=== PATIENT | female | born 1970 | race Caucasian/White ===

== ENCOUNTER 2025-01-14 08:54 | Day surgery (SDC) | payer SELFPAY ==
--- NOTE | 2025-01-14 09:09 | PCM.HP.STD ---
[facility] - General General Date of Admission: 01/14/25 Date of Service: 01/14/25 Chief Complaint: Personal history of polyps [facility] Narrative KAMLA MORENO, is a 54 F who presents today for surveillance colonoscopy. She had a colonoscopy back in 2019 when she had 2 small 0.3 and 0.4 mm sessile polyps removed. She is not having any abdominal pain, cramping, chest pain or shortness of breath at this time. [facility] Medical History Wears glasses Wears dentures Post-menopausal Thyroid disease Shortness of breath on exertion Non-smoker PONV (postoperative nausea and vomiting) Personal history of colonic polyps section wound complication Polycystic ovaries IBS (irritable bowel syndrome) Hearing problem Chronic headaches Cataracts, bilateral Seasonal allergies Anemia Home Medications ?Medication ?Instructions ?Recorded ?Last Taken ?Type aspirin 81 mg capsule 81 mg PO DAILY 01/09/25 01/08/25 History calcium-magnesium 300 mg-300 mg 1 tab PO DAILY 01/09/25 Unknown History tablet levothyroxine 50 mcg tablet 50 mcg PO DAILY disorder of 01/09/25 Unknown History thyroid gland loratadine 10 mg capsule (Allergy 10 mg PO DAILY 01/09/25 Unknown History Relief (loratadine)) Allergy/AdvReac Type Severity Reaction Status Date / Time No Known Allergies Allergy Verified 01/09/25 11:54 Family History Father Myocardial infarction CVA (cerebral vascular accident) Mother Diabetes Grandmother Cancer Aunt Cancer Other Family history of transfusion of whole blood Surgical History History of colonoscopy History of Hx of tonsillectomy Social History Smoking Status: Never smoker alcohol intake: never substance use type: does not use ROS Constitutional Constitutional: Denies fatigue, fever(s), poor appetite, weight gain or weight loss Gastrointestinal Gastrointestinal: Denies belching, bloating, change in bowel habits, change in stool character, chewing difficulty, coffee ground emesis, constipation, cramping, diarrhea, dyspepsia, dysphagia, early satiety, excessive flatus, fecal incontinence, heartburn, hematemesis, hematochezia, hemorrhoids, loose stools, melena, nausea, odynophagia, rectal bleeding, tenesmus, vomiting or weight changes Physical Exam Const alert, oriented x3, no apparent distress and healthy appearing General Appearance: cooperative GI normal to inspection, nondistended, normoactive bowel sounds, soft to palpation, non-tender and non-distended Percussion: normal to percussion Rectal Exam: deferred Assessment & Plan Assessment/Plan (1) Personal history of colonic polyps: PLAN: She will undergo surveillance colonoscopy. She was explained alternatives, risk and benefits include not withstanding bleeding, infection, sepsis, perforation, need for surgery . She will have an ASA of 3.
[2025-01-14 09:32] VITALS: BP 130/92; PULSE 58; RESP 18; TEMP 36.4; O2SAT 99; BMI 27.2
[2025-01-14] MEDS: Lactated Ringers 1,000 ML 15 ML IV (09:41)
--- NOTE | 2025-01-14 09:45 | PCM.PRE.AN2 ---
ASA Classification* ASA Classification ASA Classification: 2 (Hx PONV, IBS, hypothyroid) Assessment & Plan Anesthesia* Anesthesia Assessment Anesthesia Assessment: Discussed sedation and/or anesthesia options, risks, benefits, and alternatives with patient/parents/legal guardian/POA. Questions invited. The patient/parents/legal guardian/POA seems to understand and agrees to proceed with anesthesia plan. Reviewed the physical assessment, medical history, allergy history and patient home medications list prior to surgery/procedure/anesthetic and documented any changes. Performed airway and anesthesia risk assessments. 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 When Was Last Pacemaker Check QUESTION #4 FULL TEXT: You/Your Family Experience fever (hyperthermia) with Anesthesia Last Oral Intake Last Oral intake: Last Oral Intake NPO since 05:30 01/14/25 09:32 Meds taken in AM with sips of water? 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 Female Yes 01/09/25 11:57 HX of Motion Sickness No 01/09/25 11:57 HX of N/V After Surgery Yes 01/09/25 11:57 Non-Smoker Yes 01/09/25 11:57 Duration of Surgery greater No 01/09/25 11:57 than 60 minutes Number of Risk Factors 3 01/09/25 11:57 PONV Score Moderate Risk 01/09/25 11:57 Height & Weight Height & Weight: Anesthesia: Height & Weight Height 5 ft 4 in 01/14/25 09:32 Weight: 72 kg 01/14/25 09:32 Body Mass Index (BMI) 27.2 01/14/25 09:32 Respiratory Assessment Respiratory Assessment - sales representative livestock: Respiratory Tract Infection Hx - sales representative livestock Hx Respiratory Tract Infection No 01/09/25 11:57 STOP Sleep Apnea STOP Sleep Apnea - sales representative livestock: STOP Sleep Apnea - sales representative livestock Hx Hypertension No 01/09/25 11:57 Hx Sleep Apnea No 01/09/25 11:57 CPAP BIPAP Do you snore loudly (louder No 01/09/25 11:57 than talking or can be heard Do you often feel tired/ No 01/09/25 11:57 fatigued/ sleepy during daytime? Has anyone observed you stop No 01/09/25 11:57 breathing during sleep? STOP Results Negative 01/09/25 11:57 QUESTION #5 FULL TEXT : Do you snore loudly (louder than talking or can be heard through closed doors)? 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 Specify any problems Hx of Preganancy in last 3 No 01/09/25 11:57 Months Nurse Filling Out Transfusion MGRIFFITH 01/09/25 11:57 & Questions: Date: 01/09/25 01/09/25 11:57 Time: 11:59 01/09/25 11:57 Patient unable to answer at this time (ie. confused, unrespo /Reproduction History /Reproductive History - sales representative livestock: /Reproductive Hx- sales representative livestock Hx Now No 01/09/25 11:57 Gestational Age (in weeks): EDC: Hx Hx Para Hx Section SAB No 01/09/25 11:57 Active Medications Active Medications: Current Medications Generic Name Dose Route Start Last Admin Trade Name Freq PRN Reason Stop Dose Admin Lactated Ringer's 1,000 mls @ 15 mls/hr 01/14/25 09:15 01/14/25 09:41 IV 15 mls/hr .Q48H RAS Administration PFSH Medical History Wears glasses Wears dentures Post-menopausal Thyroid disease Shortness of breath on exertion Non-smoker PONV (postoperative nausea and vomiting) Personal history of colonic polyps section wound complication Polycystic ovaries IBS (irritable bowel syndrome) Hearing problem Chronic headaches Cataracts, bilateral Seasonal allergies Anemia Home Medications ?Medication ?Instructions ?Recorded ?Last Taken ?Type aspirin 81 mg capsule 81 mg PO DAILY 01/09/25 01/08/25 History calcium-magnesium 300 mg-300 mg 1 tab PO DAILY 01/09/25 01/12/25 History tablet levothyroxine 50 mcg tablet 50 mcg PO DAILY disorder of 01/09/25 01/14/25 History thyroid gland loratadine 10 mg capsule (Allergy 10 mg PO DAILY 01/09/25 01/13/25 History Relief (loratadine)) Allergy/AdvReac Type Severity Reaction Status Date / Time No Known Allergies Allergy Verified 01/14/25 09:31 Family History Father Myocardial infarction CVA (cerebral vascular accident) Mother Diabetes Grandmother Cancer Aunt Cancer Other Family history of transfusion of whole blood Surgical History History of colonoscopy History of Hx of tonsillectomy Social History Smoking Status: Never smoker alcohol intake: never substance use type: does not use Review of Systems (Anesthesia) ROS Narrative System reviewed and no additional complaints, except as documented. Physical Exam Const alert, oriented x3 and average body habitus Resp normal respiratory effort, normal air movement and clear to auscultation bilaterally Cardio regular rate, regular rhythm, no murmurs and diaphoretic
[2025-01-14 09:47] VITALS: BP 130/92; PULSE 58; RESP 18; TEMP 36.4; O2SAT 99
--- NOTE | 2025-01-14 10:48 | OP.COLON_ITS ---
Patient Name: Juana Salmeron Procedure Date: 01/14/2025 10:22 AM Date of : 1970 Age: 54 Procedure: Colonoscopy Indications: High risk colon cancer surveillance: Personal history of colonic polyps Providers: Jude Robledo DO Referring MD: Sujit Villegas Do Medicines: Monitored Anesthesia Care Patient Profile: This is a 54 year old female. Refer to note in patient chart for documentation of history and physical. Last Colonoscopy: 5 years ago. Complications: No immediate complications. Procedure: Pre-Anesthesia Assessment: - Prior to the procedure, a History and Physical was performed, and patient medications and allergies were reviewed. The patient is competent. The risks and benefits of the procedure and the sedation options and risks were discussed with the patient. All questions were answered and informed consent was obtained. Patient identification and proposed procedure were verified by the physician in the pre-procedure area. Mental Status Examination: alert and oriented. Airway Examination: normal oropharyngeal airway and neck mobility. Respiratory Examination: clear to auscultation. CV Examination: normal. Prophylactic Antibiotics: The patient does not require prophylactic antibiotics. Prior Anticoagulants: The patient has taken no anticoagulant or antiplatelet agents except for NSAID medication. ASA Grade Assessment: II - A patient with mild systemic disease. After reviewing the risks and benefits, the patient was deemed in satisfactory condition to undergo the procedure. The anesthesia plan was to use monitored anesthesia care (MAC). Immediately prior to administration of medications, the patient was re-assessed for adequacy to receive sedatives. The heart rate, respiratory rate, oxygen saturations, blood pressure, adequacy of pulmonary ventilation, and response to care were monitored throughout the procedure. The physical status of the patient was re-assessed after the procedure. After I obtained informed consent, the scope was passed under direct vision. Throughout the procedure, the patient's blood pressure, pulse, and oxygen saturations were monitored continuously. The colonoscope was introduced through the anus and advanced to the cecum, identified by appendiceal orifice and ileocecal valve. The colonoscopy was performed without difficulty. The patient tolerated the procedure well. The quality of the bowel preparation was adequate. The ileocecal valve, appendiceal orifice, and rectum were photographed. Scope In: 10:30:12 AM Scope Withdrawal Time 0 hours 6 minutes 6 seconds Scope Out: 10:42:44 AM Total Procedure Duration Time 0 hours 12 minutes 32 seconds Findings: The perianal and digital rectal examinations were normal. A few small-mouthed diverticula were found in the recto-sigmoid colon, sigmoid colon and descending colon. The exam was otherwise without abnormality on direct and retroflexion views. Impression: - Diverticulosis in the recto-sigmoid colon, in the sigmoid colon and in the descending colon. - The examination was otherwise normal on direct and retroflexion views. - No specimens collected. Recommendation: - Discharge patient to home. - Resume previous diet. - Continue present medications. - Repeat colonoscopy in 5 years for surveillance. Procedure Code(s): --- Professional --- 25916, Colonoscopy, flexible; diagnostic, including collection of specimen(s) by brushing or washing, when performed (separate procedure) CPT copyright 2021 [employer]. All rights reserved. The codes documented in this report are preliminary and upon cook restaurant review may be revised to meet current compliance requirements. Jude Robledo DO 01/14/2025 10:48:12 AM This report has been signed electronically. Number of Addenda: 0 Note Initiated On: 01/14/2025 10:22 AM
--- NOTE | 2025-01-14 10:48 | OP.PROVAT_ITS ---
01/14/2025 Sujit Villegas Do Re : Colonoscopy procedure for Juana Salmeron Dear Nelly This procedure was performed on Tuesday, January 14, 2025. My impressions and recommendations are as follows: Impressions : - Diverticulosis in the recto-sigmoid colon, in the sigmoid colon and in the descending colon. - The examination was otherwise normal on direct and retroflexion views. - No specimens collected. Recommendations : - Discharge patient to home. - Resume previous diet. - Continue present medications. - Repeat colonoscopy in 5 years for surveillance. My findings are described in the full procedure note, which is enclosed. If I can be of further assistance, please feel free to contact me at . Sincerely, Jude Robledo, 01/14/2025 10:48:12 AM This report has been signed electronically.
[2025-01-14 10:51] VITALS: BP 130/92; BP 98/64; PULSE 55; RESP 16; TEMP 36.3; O2SAT 98
--- NOTE | 2025-01-14 10:54 | PCM.POST.ANE ---
Anesthesia: Postop Eval I Current Vital Signs Temperature: 97.4 F Pulse Rate: 61 Blood Pressure: 98/64 Respiratory Rate: 16 Pulse Ox: 99 Oxygen Delivery Method: Room Air Assessment Airway patent: Yes Spontaneous unlabored respirations: Yes Mental status: Awake and Calm nausea: No Vomiting: No Anesthesia Complication: No Fluid Hydration Crystalloid volume administer (ml): 500 Total IV fluid infused: 500 Progress Note Anesthesia document: Postop Eval 1 completed: Yes
[2025-01-14 10:55] VITALS: BP 100/64; BP 130/92; BP 98/64; PULSE 56; PULSE 61; RESP 16; TEMP 36.3; O2SAT 97; O2SAT 99
[2025-01-14 11:00] VITALS: BP 106/60; BP 130/92; PULSE 52; RESP 18; TEMP 36.5; O2SAT 98
[2025-01-14 11:16] VITALS: BP 130/92
--- NOTE | 2025-01-14 12:46 | PCM.POSTANE2 ---
Anesthesia Postop Eval I Sum Postop Eval Completion status Anesthesia document: Postop Eval 1 completed: Yes Anesthesia Postop Eval I Summary Anesthesia Postop Eval I Summary: Anesthesia Postop Eval I: Assessment Summary Airway patent Yes 01/14/25 10:55 [email or web address] Spontaneous unlabored Yes 01/14/25 10:55 [email or web address] respirations Mental status Awake,Calm 01/14/25 10:55 [email or web address] nausea No 01/14/25 10:55 [email or web address] Vomiting No 01/14/25 10:55 [email or web address] Anesthesia Postop Eval I: Fluid Summary Crystalloid volume administer 500 01/14/25 10:55 [email or web address] (ml) Colloids volume administered ( ml) Blood Product volume administered (ml) Total IV fluid infused 500 01/14/25 10:55 [email or web address] Anesthesia Postop Eval I: Summary Notes Anesthesia Complication No 01/14/25 10:55 [email or web address] Anesthesia Complication Comment: Post-operative progress note Anesthesia: Postop Eval II Evaluation Mental status: Awake Pain Level: 0 nausea: No Vomiting: No Complications Anesthesia Complication: No
== END 2025-01-14 11:34 | disposition home or self-care (01) ==
LOC: EN 08:57 → AC 09:00
PROVIDERS: PCP Physician Assistant; Referring Provider Physician Assistant; Visit Provider Internal Medicine Gastroenterology
PROC: 0DJD8ZZ Inspection of Lower Intestinal Tract, Via Natural or Artificial Opening Endoscopic (ICD-10-PCS; CPT 45378; principal; 2025-01-14 09:55)
DX: Z12.11 Encounter for screening for malignant neoplasm of colon (principal); K57.30 Diverticulosis of large intestine without perforation or abscess without bleeding; K58.9 Irritable bowel syndrome, unspecified; E07.9 Disorder of thyroid, unspecified; Z79.82 Long term (current) use of aspirin; Z79.890 Hormone replacement therapy; Z79.899 Other long term (current) drug therapy; Z86.0100 Personal history of colon polyps, unspecified
CPT/HCPCS: 45378; J2405